=== PATIENT | male | born 1980 | race Caucasian/White ===

== ENCOUNTER 2022-05-20 23:57 | Inpatient (IN) | payer BC, SELFPAY ==
[2022-05-21] VITALS (7 sets, daily range): BP systolic 108–123; BP diastolic 65–76; PULSE 56–83; RESP 16–28; TEMP 36.6–36.8; O2SAT 95–97; BMI 30.3
--- NOTE | 2022-05-21 00:15 | ED.C_ITS ---
HPI - Psych General: Chief Complaint: Psychiatric Symptoms Stated Complaint: shortness of breath SI Time Seen by Provider: 05/20/22 23:58 Source: patient Mode of arrival: ambulatory Limitations: no limitations History of Present Illness: 41-year-old male presents here he states been feeling extremely anxious and depressed. He states he been having suicidal thoughts over the last 1 to 2 days with plans to kill himself he states he wants to get help. Patient here is quite anxious and agitated patient had to be verbally de-escalated because he became extremely aggressive with security was outside the room. Patient was able to calm down after a while. Associated symptoms: Reports depression and suicidal ideation Review of Systems Const: Denies: fever(s), chills, body aches or change in appetite Eyes: Denies: blurry vision or eye discomfort ENMT: Denies: throat pain or dental pain Card: Denies: chest pain Resp: Denies: dyspnea GI: Denies: abdominal pain, nausea, vomiting or diarrhea : Denies: dysuria Musc: Denies: neck pain or back pain Skin/Breast: Denies: rash Neuro: Denies: headache(s) Psych: Reports: anxiety, depression and suicidal ideation Bryan/Lymph: Denies: easy bruising All/Imm: Denies: urticaria PFSH ED PFSH: Medical History No pertinent past medical history Social History (Updated 05/21/22 @ 00:16 by Jyoti Holt MD) Smoking and tobacco status: current some day smoker Physical Exam Const: COMMON NORMALS: patient oriented x3 GENERAL APPEARANCE: anxious HENMT: COMMON NORMALS: normocephalic and atraumatic HEAD & SCALP: normocephalic and atraumatic Eye: COMMON NORMALS: Equal, round and reactive pupils present and EOMs intact bilaterally PUPIL: Yes Equal, round and reactive pupils present Neck/C-Spine: COMMON NORMALS: full ROM and supple Chest: COMMONS NORMALS: normal inspection of the chest and normal palpation of entire chest wall Resp: COMMON NORMALS: normal respiratory effort, No retractions, No use of accessory muscles and clear to auscultation bilaterally AUSCULTATION: clear t o auscultation bilaterally Cardio: COMMON NORMALS: regular rate, regular rhythm and No murmurs present (Cardio) RATE: regular rate RHYTHM: regular rhythm GI: COMMON NORMALS: Normal to inspection, nondistended, normoactive bowel sounds present, Soft to palpation, non-tender and no masses PALPATION: Yes Soft to palpation Extremity: COMMON NORMALS: normal to inspection and full ROM Neuro: COMMON NORMALS: patient oriented x3, moves all extremities and no focal motor deficits Psych: COMMON NORMALS: mental status grossly normal and Normal thought process present SPEECH: Yes Pressured speech present MOOD & AFFECT: Yes elevated mood and Yes anxious THOUGHT PROCESS: Normal thought process present THOUGHT CONTENT: Yes Suicidality present Skin: COMMON NORMALS: no rashes or lesions noted and no wounds GENERAL SKIN EXAM: no rashes or lesions noted Course Vital Signs: Vital signs: Vital Signs Temperature 98.0 F 05/21/22 00:11 Pulse Rate 83 05/21/22 00:11 Respiratory Rate 28 H 05/21/22 00:11 Pulse Oximetry 97 05/21/22 00:11 Oxygen Delivery Me thod 05/21/22 00:11 MDM - Psych Medical Decision Making Patient presents here with suicidal ideation spoke to psychiatrist will admit at this time patient is medically cleared. Lab Data : 05/21/22 00:26 05/21/22 00:26 Laboratory Results WBC 7.3 10^3/uL (4.0-10.0) 05/21/22 00:26 RBC 4.84 10^6/uL (4.1-5.3) 05/21/22 00:26 Hgb 14.3 g/dL (11.7-16.6) 05/21/22 00:26 Hct 42.8 % (42.0-52.0) 05/21/22 00:26 MCV 88.4 fl (80-94) 05/21/22 00:26 MCH 29.5 pg (28.0-34.0) 05/21/22 00:26 MCHC 33.4 g/dL (30.0-36.0) 05/21/22 00:26 RDW 11.9 % (12.1-15.1) L 05/21/22 00:26 Plt Count 292 10^3/cmm (130-400) 05/21/22 00:26 MPV 9.8 fL (7.4-10.4) 05/21/22 00:26 Neut % (Auto) 51.3 % 05/21/22 00:26 Lymph % (Auto) 32.9 % 05/21/22 00:26 [place] % (Auto) 5.7 % 05/21/22 00:26 Eos % (Auto) 8.1 % 05/21/22 00:26 Baso % (Auto) 1.6 % 05/21/22 00:26 Neut # (Auto) 3.75 10^3/uL (1.8-7.7) 05/21/22 00:26 Lymph # (Auto) 2.4 10^3/uL (0.8-4.8) 05/21/22 00:26 [place] # (Auto) 0.4 10^3/uL (0.2-0.9) 05/21/22 00:26 Eos # (Auto) 0.6 10^3/uL (0.0-0.8) 05/21/22 00: Baso # (Auto) 0.1 10^3/uL (0.0-0.1) 05/21/22 00:26 Nucleated RBC % (auto) 0 % 05/21/22 00: Nucleated RBCs # 0.0 /100WBC 05/21/22 00:26 Sodium 144 mmol/L (136-145) 05/21/22 00:26 Potassium 4.5 mmol/L (3.5-5.1) 05/21/22 00:26 Chloride 105 mmol/L (98-107) 05/21/22 00: Carbon Dioxide 28 mmol/L (22-29) 05/21/22 00:26 Anion Gap 15.5 (5-19) 05/21/22 00:26 BUN 9 mg/dL (6-20) 05/21/22 00:26 Creatinine 0.8 mg/dL (0.7-1.2) 05/21/22 00:26 GFR Calculation 107.1 mL/min (90-130) 05/21/22 00:26 Glucose 132 mg/dL (65-115) H 05/21/22 00:26 Calculated Osmolality 299 mOsm/kg (285-295) H 05/21/22 00:26 Calcium 9.1 mg/dL (8.5-10.5) 05/21/22 00:26 Total Bilirubin 0.2 mg/dL (0.15-1.2) 05/21/22 00:26 AST 30 U/L (0-40) 05/21/22 00:26 ALT 28 U/L (0-41) 05/21/22 00:26 Alkaline Phosphatase 111 IU/L (40-130) 05/21/22 00:26 Total Protein 6.8 g/dL (6.6-8.7) 05/21/22 00:26 Albumin 4.2 g/dL (3.5-5.2) 05/21/22 00:26 Globulin 2.6 g/dL (1.3-4.6) 05/21/22 00:26 Salicylates 0.4 mg/dL (3-10) L 05/21/22 00:26 Urine Opiates Screen Negative ng/mL (Negative) 05/21/22 00:35 Acetaminophen < 5.0 ug/mL (10-30) L 05/21/22 00:26 Ur Barbiturates Screen Negative ng/mL (Negative) 05/21/22 00:35 Ur Phencyclidine Scrn Negative ng/mL (Negative) 05/21/22 00:35 Ur Amphetamines Screen Positive ng/mL (Negative) H 05/21/22 00:35 U Benzodiazepines Scrn Negative ng/mL (Negative) 05/21/22 00:35 Urine Cocaine Screen Negative ng/mL (Negative) 05/21/22 00:35 U Marijuana (THC) Screen Negative ng/mL (Negative) 05/21/22 00:35 Ethyl Alcohol 107 mg/dL (0-10) H 05/21/22 00:26 Discharge Plan Discharge Patient Disposition: Admitted As Inpatient Clinical Impression: Suicidal ideation Coding Level of Care Code ED Spring Coiler Hand for Daya Fwd Exam Comprehensive
[2022-05-21] MEDS: haloperidol inj 5 mg/mL INJ 1 mL IM (00:20)
[2022-05-21] MEDS: midazolam 1 mg/mL INJ 2 mL 2 MG IM (00:20)
[2022-05-21 00:35] LABS: Basophils # 0.1 10^3/uL (0.0-0.1); Basophils % 1.6 %; Eosinophils # 0.6 10^3/uL (0.0-0.8); Eosinophils % 8.1 %; Hematocrit 42.8 % (42.0-52.0); Hemoglobin 14.3 g/dL (11.7-16.6); Lymphocytes # 2.4 10^3/uL (0.8-4.8); Lymphocytes % 32.9 %; Mean Corpuscular HGB Conc 33.4 g/dL (30.0-36.0); Mean Corpuscular Hemoglobin 29.5 pg (28.0-34.0); Mean Corpuscular Volume 88.4 fl (80-94); Mean Platelet Volume 9.8 fL (7.4-10.4); Monocytes # 0.4 10^3/uL (0.2-0.9); Monocytes % 5.7 %; Neutrophils # 3.75 10^3/uL (1.8-7.7); Neutrophils % 51.3 %; Nucleated Red Blood Cells % 0 %; Platelet Count 292 10^3/cmm (130-400); Red Blood Count 4.84 10^6/uL (4.1-5.3); Red Cell Distribution Width 11.9 % (12.1-15.1); White Blood Count 7.3 10^3/uL (4.0-10.0)
--- NOTE | 2022-05-21 00:37 | ECG_ITS ---
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 Measurements Intervals [place] Rate: 78 P: 24 MO: 126 QRS: 56 QRSD: 106 T: 56 QT: 388 QTc: 442 Interpretive Statements SINUS RHYTHM No previous ECG available for comparison Electronically Signed On 05-21-2022 21:28:01 CDT by Phuc Dan M.D. [email or web address]
[2022-05-21 00:56] LABS: Alanine Aminotransferase 28 U/L (0-41); Albumin Level 4.2 g/dL (3.5-5.2); Alcohol Level 107 mg/dL (0-10); Alkaline Phosphatase 111 IU/L (40-130); Anion Gap 15.5 (5-19); Aspartate Amino Transferase 30 U/L (0-40); Blood Urea Nitrogen 9 mg/dL (6-20); Calcium 9.1 mg/dL (8.5-10.5); Carbon Dioxide 28 mmol/L (22-29); Chloride 105 mmol/L (98-107); Creatinine Clr Calc Pharmacy 155.6778; Globulin 2.6 g/dL (1.3-4.6); Glomerular Filtration Rate 107.1 mL/min (90-130); Glucose 132 mg/dL (65-115); Osmolality Calculated 299 mOsm/kg (285-295); Potassium 4.5 mmol/L (3.5-5.1); Salicylate 0.4 mg/dL (3-10); Sodium 144 mmol/L (136-145); Total Bilirubin 0.2 mg/dL (0.15-1.2); Total Protein 6.8 g/dL (6.6-8.7)
[2022-05-21 00:58] LABS: Acetaminophen < 5.0 ug/mL (10-30)
--- NOTE | 2022-05-21 01:07 | PC.NURSE ---
0010: MD at bedside. Pt became very angry and aggressive, getting in MD's face. Security, this RN, charge entry, and flexboard operator at bedside. Pt began escalating, yelling for security to leave. Security was instructed by charge entry to step out of sight of pt. This calmed patient down. Pt then sat on bed and allowed this RN and charge entry to complete assessment, draw labs. Pt also requested med to help him calm down, as he hasn't been taking his meds. This was ordered by and given to pt, with pt consent.
--- NOTE | 2022-05-21 01:09 | PC.NURSE ---
Pt currently resting quietly. and father in room. EKG completed. Pt cooperative and calm.
[2022-05-21 01:23] LABS: Amphetamines Screen Urine Positive (Negative); Barbiturates Screen Urine Negative (Negative); Benzodiazepines Screen Urine Negative (Negative); Cocaine Screen Urine Negative (Negative); Opiate Screen Urine Negative (Negative); PCP Screen Urine Negative (Negative); THC Screen Urine Negative (Negative)
--- NOTE | 2022-05-21 07:34 | P.NPUHP_ITS ---
Providers/Chief Complaint Admitting Physician: Brandon Tate MD Chief Complaint: shortness of breath, SI HPI NPU History of Present Illness Tripp Tatum is a 41 year old male who presented to the emergency department with the following report: Chief Complaint: Psychiatric Symptoms Stated Complaint: shortness of breath SI Time Seen by Provider: 05/20/22 23:58 Source: patient Mode of arrival: ambulatory Limitations: no limitations History of Present Illness: 41-year-old male presents here he states been feeling extremely anxious and depressed. He states he been having suicidal thoughts over the last 1 to 2 days with plans to kill himself he states he wants to get help. Patient here is quite anxious and agitated patient had to be verbally de-escalated because he became extremely aggressive with security was outside the room. Patient was able to calm down after a while. Associated symptoms: Reports depression and suicidal ideation He was admitted to the neuropsychiatric unit for definitive treatment of those issues. He presents today reporting he is currently taking Seroquel 50 mg and an antidepressant but he could not recall the name. He reports that he presents secondary to anger and anxiety. He has never been psychiatrically hospitalized, is connected to [facility] but reports he does not go to his appointments and has been on a number of medications. He reports he chews 1 can a week, alcohol occasionally, denies marijuana and denies any other illicit drug use. He has never been to drug and alcohol treatment or drug and alcohol related charges. He reports he has always had anger issues since he was younger and would get in trouble with his parents and school. He endorses anxiety in worrying about everything and feeling as if people are watching him. He endorses paranoia at p oints. He endorses depression with feelings of helplessness, hopelessness, worthlessness, low mood, suicidal ideation, problems with sleep at points but denies self-injurious behaviors. We discussed how a nurse practitioner spoke about his had recounted that he has issues with keeping things steady and he agreed that this mortgage underwriter could reach out to his to obtain collateral information. He was not able to recall if things have gotten worse in any certain period of time recently. Psychiatric History: As above. Substance Abuse History: As above. Family History: He denies mental health or addiction issues on either side of the family and denies any suicide attempts or completions on either side of the family. Developmental History: He denies any issues with his or , learned to walk and talk and met his developmental milestones on time and denies any need for speech therapy, learning support, emotional support or special education classes. Psychosocial History: He reports his parents were together when he was born and remained together. He has a sister and brother who are products of the same union. His mother has one additional son and his father has no additional children. He described his childhood as rough but denies emotional, physical or sexual abuse. He denies CYS involvement. He denies any other trauamtic events or symptoms of post traumatic stress disorder. He graduated high school and did no additional training. He endorses being heterosexual with his longest relationship being 22 years. He has been once, has 2 sons, has never been in the and denies a worship belief system. 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 He currently lives in a house with his . Legal History: He has been to assisted 3 time and county more times, the longest time was 120 days. Medical History: Denied. Meds NPU Home Medications Medication Instructions Recorded Confirmed Last Taken Type escitalopram oxalate 20 mg tablet 20 mg PO DAILY 05/21/22 05/21/22 Unknown History (Lexapro) Allergies Allergy/AdvReac Type Severity Reaction Status Date / Time No Known Allergies Allergy Verified 05/21/22 00:16 [facility] NPU PFS: Medical History No pertinent past medical history Social History (Updated 05/21/22 @ 00:16 by Jyoti Holt MD) Smoking and tobacco status: current some day smoker Mental Status Exam MSE Comments: This is an overweight versus obese white male lying in bed in hospital scrubs with poor grooming and limited eye contact. No abnormal mov ements except for psychomotor retardation. Mostly cooperative with exam in mild distress. Speech was slightly decreased rate and volume. Mood described as fine, just tired, affect is subdued and restricted. Thought process, organized. Thought content: patient denies suicidal or homicidal ideation, no delusions reported or noted and denies any auditory or visual hallucinations. Attention and concentration are intact and memory appeared reliable but none were formally tested. He is alert and oriented three times. Insight and judgment are limited. Impulse control is limited. Vitals/I&O/Wt Last Vital Signs Temp 98.3 F 05/21/22 06:00 Pulse 66 05/21/22 06:00 Resp 17 05/21/22 06:00 BP 122/74 05/21/22 06:00 Pulse Ox 97 05/21/22 06:00 O2 Del Method 05/21/22 06:00 Weight last 48 hrs Weight 104.326 kg Data NPU : 05/21/22 00:26 05/21/22 00:26 A&P Assessment and plan (1) Suicidal ideation: Status: Acute (2) Paranoia: Status: Acute (3) Anxiety: Status: Acute (4) Depression: Status: Acute Plan This is a 41 year old white male with a history of anger, depression and anxiety who presents on a 96 hour hold secondary to concerns for worsening anger, depression and anxiety who endorses some success on his current medication and an openness to changes in those medications. 1. Continue current medications 2. We will obtain collateral information including outpatient records and from the patient?s . 3. Encourage individual, group and milieu therapy 4. Continue q-15 minute check for safety 5. Recommend sober living treatment at the highest level of care to which the patient is willing to commit. Involuntary Hold Information 96 Hour Hold: 96 Hour Involuntary Admission: Yes 96 Hour Hold Ending Date: 05/27/22 96 Hour Hold Ending Time: 01:35 Attestations NPU Medical Necessity Statement*: Inpatient hospitalization is medically necessary and the clinically appropriate intervention at this time. We will monitor medications and make changes as indicated. Patient will be in the hospital for o neisha two midnights. Likely length of stay is three to five days. Coding Level of Care Code Acute Communications Department Chair for Daya Burns Diagnoses Suicidal ideation R45.851 Paranoia F22 Anxiety F41.9 Depression F32.A
[2022-05-21] MEDS: folic acid 1 mg Tablet PO (08:33)
[2022-05-21] MEDS: escitalopram 10 mg Tablet 20 MG PO (08:33)
[2022-05-21] MEDS: thiamine 100 mg Tablet PO (08:33)
[2022-05-21] MEDS: multivitamin therapeutic Tablet 1 TAB PO (08:33)
--- NOTE | 2022-05-21 09:52 | PC.OT ---
OT EVAL HELD PER NURSING REQUEST. WILL ATTEMPT AT A LATER DATE.
--- NOTE | 2022-05-21 13:40 | PC.NURSE ---
, [place], called the unit, said pt takes home med Seroquel 50 mg at bedtime, was taking prior to admission last night.
[2022-05-21] MEDS: quetiapine 25 mg Tablet 50 MG PO (21:14)
[2022-05-22 06:00] VITALS: BP 119/73; PULSE 59; RESP 18; TEMP 36.5; O2SAT 96
[2022-05-22] MEDS: escitalopram 10 mg Tablet 20 MG PO (10:14)
[2022-05-22] MEDS: multivitamin therapeutic Tablet 1 TAB PO (10:14)
[2022-05-22] MEDS: thiamine 100 mg Tablet PO (10:15)
[2022-05-22] MEDS: folic acid 1 mg Tablet PO (10:16)
--- NOTE | 2022-05-22 12:27 | P.NPUPN_ITS ---
Subjective NPU Subjective: Patient presents today continuing to be somewhat ambiguous about his presentation and what his needs are. He was pushing for discharge even though there has been much we have accomplished and this may have been aided by some confusion about his discharge because there was another Tripp on the unit that was leaving. However after we spoke I had an opportunity to speak to his with his permission and she painted a very different picture. Picture of significant legal issues from poor choices. A history of recent dangerous and suicidal behaviors. Recent legal judgment that avoided up to 8 years in group home but left him with 5 years of probation/parole among other things. Mental Status Exam MSE Comments: This is an overweight versus obese white male lying in bed in hospital scrubs with poor grooming and limited eye contact. No abnormal movements except for psychomotor retardation. Mostly cooperative with exam in mild distress. Speech was slightly decreased rate and volume. Mood described as okay, just tired, affect is subdued and restricted. Thought process, organized. Thought content: patient denies suicidal or homicidal ideation, no delusions reported or noted and denies any auditory or visual hallucinations. Attention and concentration are intact and memory appeared reliable but none were formally tested. He is alert and oriented three times. Insight and judgment are limited. Impulse control is limited. Vitals/I&O/Wt Last Vital Signs Temp 97.7 F 05/22/22 06:00 Pulse 59 L 05/22/22 06:00 Resp 18 05/22/22 06:00 BP 119/73 05/22/22 06:00 Pulse Ox 96 05/22/22 06:00 O2 Del Method 05/21/22 14:00 Weight last 48 hrs Weight 104.326 kg Data NPU : 05/21/22 00:26 05/21/22 00:26 A&P Assessment and plan (1) Suicidal ideation: Status: Acute (2) Paranoia: Status: Acute (3) Anxiety: Status: Acute (4) Depression: Status: Acute Plan This is a 41 year old white male with a history of anger, depression and anxiety who presents on a 96 hour hold secondary to concerns for worsening anger, depression and anxiety who endorses some success on his current medication and an openness to changes in those medications. 1. Continue current medications 2. We will obtain collateral information including outpatient records and from the patient?s . We will speak to him again in the morning about this new and pertinent information. 3. Encourage individual, group and milieu therapy 4. Continue q-15 minute check for safety 5. Recommend sober living treatment at the highest level of care to which the patient is willing to commit. Involuntary Hold Information 96 Hour Hold: 96 Hour Involuntary Admission: Yes 96 Hour Hold Ending Date: 05/27/22 96 Hour Hold Ending Time: 01:35 Attestations NPU Medical Necessity Statement*: Inpatient hospitalization is medically necessary and the clinically appropriate intervention at this time. We will monitor medications and make changes as indicated. Likely length of stay is three to five days. Coding Level of Care Code Acute Studio Owner for g Fwd Diagnoses Suicidal ideation R45.851 Paranoia F22 Anxiety F41.9 Depression F32.A
[2022-05-22 14:00] VITALS: BP 123/82; PULSE 64; RESP 16; TEMP 36.7; O2SAT 96
[2022-05-22 20:14] VITALS: BP 113/66; PULSE 60; RESP 18; TEMP 36.8; O2SAT 97
[2022-05-22] MEDS: quetiapine 25 mg Tablet 50 MG PO (21:58)
[2022-05-22] MEDS: trazodone 50 mg Tablet PO (21:58)
[2022-05-22] MEDS: hyDROXYzine 25 mg Capsule 50 MG PO (21:59)
[2022-05-23 06:00] VITALS: BP 95/60; PULSE 66; RESP 18; TEMP 36.6; O2SAT 95
--- NOTE | 2022-05-23 07:53 | P.NPUPN_ITS ---
Subjective NPU Subjective: Patient presents today pushing for discharge. We had a fairly lengthy discussion about his focus on discharge and a focus on getting better so the discharge would be successful. We discussed his pattern of behavior recently but also over the past 22 years and how thinking that I have to balwinder nge without a plan for change is a plan for failure. He had no actionable ideas about what he would do differently that would prevent the mostly self- destructive behavior that has been the pattern of his life. He expressed security and that his would not leave but he could not articulate what he is doing or what he will change that would make it so that would be a smart decision on her part. His homework was to start thinking about actionable ideas to not have these group home/legal problems, poor employment outcomes, dangerous behaviors at home be continued behaviors. Mental Status Exam MSE Comments: This is an overweight versus obese white male lying in bed in hospital scrubs with poor grooming and limited eye contact. No abnormal movements except for psychomotor retardation. Mostly cooperative with exam in mild distress. Speech was slightly decreased rate and volume. Mood described as good I did not ready to go home, affect is less subdued and restricted. Thought process, organized. Thought content: patient denies suicidal or homicidal ideation, no delusions reported or noted and denies any auditory or visual hallucinations. Attention and concentration are intact and memory appeared reliable but none were formally tested. He is alert and oriented three times. Insight and judgment are poor. Impulse control is limited. Vitals/I&O/Wt Last Vital Signs Temp 98 F 05/23/22 06:00 Pulse 66 05/23/22 06:00 Resp 18 05/23/22 06:00 BP 95/60 05/23/22 06:00 Pulse Ox 95 05/23/22 06:00 O2 Del Method 05/22/22 14:00 Data NPU : 05/21/22 00:26 05/21/22 00:26 A&P Assessment and plan (1) Suicidal ideation: Status: Acute (2) Paranoia: Status: Acute (3) Anxiety: Status: Acute (4) Depression: Status: Acute Plan This is a 41 year old white male with a history of anger, depression and anxiety who presents on a 96 hour hold secondary to concerns for worsening anger, depression and anxiety who endorses some success on his current medication and an openness to changes in those medications. 1. Continue current medications 2. His 's information showed a picture of significant dysfunction and dangerous behavior. We will continue to discuss what he will do to make these not the standard in his life. 3. Encourage individual, group and milieu therapy 4. Continue q-15 minute check for safety 5. Recommend sober living treatment at the highest level of care to which the patient is willing to commit. Involuntary Hold Information 96 Hour Hold: 96 Hour Involuntary Admission: Yes 96 Hour Hold Ending Date: 05/27/22 96 Hour Hold Ending Time: 01:35 Attestations NPU Medical Necessity Statement*: Inpatient hospitalization is medically necessary and the clinically appropriate intervention at this time. We will monitor medications and make changes as indicated. Likely length of stay is 2-4 days. Coding Level of Care Code Acute Survey Chief for Daya Burns Diagnoses Suicidal ideation R45.851 Paranoia F22 Anxiety F41.9 Depression F32.A
[2022-05-23] MEDS: multivitamin therapeutic Tablet 1 TAB PO (08:56)
[2022-05-23] MEDS: folic acid 1 mg Tablet PO (08:56)
[2022-05-23] MEDS: escitalopram 10 mg Tablet 20 MG PO (08:56)
[2022-05-23] MEDS: thiamine 100 mg Tablet PO (08:56)
[2022-05-23 14:00] VITALS: BP 112/71; PULSE 60; RESP 18; TEMP 36.6; O2SAT 98
[2022-05-23] MEDS: nicotine 21 mg Patch 1 PATCH TRANSDERMA (15:17)
[2022-05-23 20:06] VITALS: BP 143/77; PULSE 73; RESP 16; O2SAT 97
[2022-05-23] MEDS: quetiapine 25 mg Tablet 50 MG PO (21:01)
--- NOTE | 2022-05-24 06:18 | P.NPUPN_ITS ---
Subjective NPU Subjective: Patient presents today having to face his continued impulsive behaviors at home that led to the admission. He is now actively speaking about his recovery and engaging in recovery oriented behavior. He still continues to likely be getting a list of things that he thinks will assist in him being discharged. We discussed working with the treatment team tomorrow to get him connected with treatment and work with his to create some kind of accountability with services moving forward. Mental Status Exam MSE Comments: This is an overweight versus obese white male lying in bed in hospital scrubs with poor grooming and limited eye contact. No abnormal movements except for psychomotor retardation. Mostly cooperative with exam in no acute distress. Speech was normal rate and volume. Mood described as good I am ready I think, affect is less subdued and restricted. Thought process, organized. Thought content: patient denies suicidal or homicidal ideation, no delusions reported or noted and denies any auditory or visual hallucinations. Attention and concentration are intact and memory appeared reliable but none were formally tested. He is alert and oriented three times. Insight and judgment are limited. Impulse control is limited. Vitals/I&O/Wt Last Vital Signs Temp 97.8 F 05/23/22 14:00 Pulse 73 05/23/22 20:06 Resp 16 05/23/22 20:06 BP 143/77 05/23/22 20:06 Pulse Ox 97 05/23/22 20:06 O2 Del Method 05/23/22 14:00 Data NPU : 05/21/22 00:26 05/21/22 00:26 A&P Assessment and plan (1) Suicidal ideation: Status: Acute (2) Paranoia: Status: Acute (3) Anxiety: Status: Acute (4) Depression: Status: Acute Plan This is a 41 year old white male with a history of anger, depression and anxiety who presents on a 96 hour hold secondary to concerns for worsening anger, depression and anxiety who endorses some success on his current medication and an openness to changes in those medications. 1. Continue current medications 2. His 's information showed a picture of significant dysfunction and dangerous behavior. We will continue to discuss what he will do to make these not the standard in his life. 3. Encourage individual, group and milieu therapy 4. Continue q-15 minute check for safety 5. Recommend sober living treatment at the highest level of care to which the patient is willing to commit. Involuntary Hold Information 96 Hour Hold: 96 Hour Involuntary Admission: Yes 96 Hour Hold Ending Date: 05/27/22 96 Hour Hold Ending Time: 01:35 Attestations NPU Medical Necessity Statement*: Inpatient hospitalization is medically necessary and the clinically appropriate intervention at this time. We will monitor medications and make changes as indicated. Likely length of stay is 1-3 days. Coding Level of Care Code Acute Perlite Grinder for [facility] Fwd Diagnoses Suicidal ideation R45.851 Paranoia F22 Anxiety F41.9 Depression F32.A
[2022-05-24] MEDS: folic acid 1 mg Tablet PO (08:03)
[2022-05-24] MEDS: escitalopram 10 mg Tablet 20 MG PO (08:03)
[2022-05-24] MEDS: multivitamin therapeutic Tablet 1 TAB PO (08:03)
[2022-05-24] MEDS: thiamine 100 mg Tablet PO (08:03)
[2022-05-24] MEDS: nicotine 2 mg Gum BUCCAL ×2 (11:17→13:11)
[2022-05-24 14:00] VITALS: BP 161/87; PULSE 63; RESP 18; TEMP 36.8; O2SAT 99
[2022-05-24] MEDS: nicotine 21 mg Patch 1 PATCH TRANSDERMA (19:21)
[2022-05-24] MEDS: trazodone 50 mg Tablet PO (20:11)
[2022-05-24] MEDS: quetiapine 25 mg Tablet 50 MG PO (20:11)
[2022-05-24 20:40] VITALS: BP 139/90; PULSE 75; RESP 18; TEMP 36.8; O2SAT 96
[2022-05-25 06:00] VITALS: BP 131/81; PULSE 74; RESP 18; TEMP 36.7; O2SAT 99
[2022-05-25] MEDS: folic acid 1 mg Tablet PO (08:09)
[2022-05-25] MEDS: escitalopram 10 mg Tablet 20 MG PO (08:10)
[2022-05-25] MEDS: multivitamin therapeutic Tablet 1 TAB PO (08:10)
[2022-05-25] MEDS: thiamine 100 mg Tablet PO (08:10)
[2022-05-25] MEDS: acetaminophen 325 mg Tablet 650 MG PO ×2 (09:09→17:23)
[2022-05-25] MEDS: hyDROXYzine 25 mg Capsule 50 MG PO (12:22)
[2022-05-25 13:16] VITALS: BP 141/72; PULSE 84; RESP 17; TEMP 36.6; O2SAT 95
--- NOTE | 2022-05-25 15:07 | P.NPUPN_ITS ---
Subjective NPU Subjective: He reports that his family has been supportive about his attending substance abuse treatment on inpatient level. going to rehab at [facility] but wishes to speak with his aoc operations intelligence officer to discuss what he had done. He reports that he wishes to consider recovery and reports that he understands that he needs to work on addiction recovery. He minimized methamphetamine abuse but reports routine alcohol use and reports having problems with managing temptations. He reports that his family has been supportive about his attending substance abuse treatment on inpatient level. Mental Status Exam MSE Comments: This is a tall friendly overweight versus obese white male lying in bed in hospital scrubs with adequate grooming and fair eye contact. No abnormal involuntary motor movements noted. He was superficially cooperative with exam in no acute distress. Speech was normal rate and volume. Mood described as okay. affect is slightly restricted. Thought process, linear logical and organized. Thought content: patient denies any suicidal or homicidal ideation, no delusions reported or noted and denies any auditory or visual hallucinations. Attention and concentration are intact and memory appeared reliable Vitals/I&O/Wt Last Vital Signs Temp 97.7 F 05/26/22 06:00 Pulse 65 05/26/22 06:00 Resp 18 05/26/22 06:00 BP 110/66 05/26/22 06:00 Pulse Ox 97 05/26/22 06:00 O2 Del Method 05/25/22 13:16 Data NPU : 05/21/22 00:26 05/21/22 00:26 A&P Assessment and plan (1) Suicidal ideation: Status: Acute (2) Paranoia: Status: Acute (3) Anxiety: Status: Acute (4) Depression: Status: Acute Plan This is a 41 year old white male with a history of anger, depression and anxiety who presents on a 96 hour hold secondary to concerns for worsening anger, depression and anxiety who endorses some success on his current medication and an openness to changes in those medications. 1. Continue current medications 2. Discuss in home concerns prior to discharge. 3. Encourage individual, group and milieu therapy 4. Continue q-15 minute check for safety 5. Recommend sober living treatment at the highest level of care to which the patient is willing to commit. Involuntary Hold Information 96 Hour Hold: 96 Hour Involuntary Admission: Yes 96 Hour Hold Ending Date: 05/27/22 96 Hour Hold Ending Time: 01:35 Attestations NPU Medical Necessity Statement*: Medical Necessity Statement*: Inpatient hospitalization is medically necessary and the clinically appropriate intervention at this time. We will monitor medications and make changes as indicated. Likely length of stay is 1-3 days. Coding Level of Care Code Established Pt Acute Microphone Operator for Yeisong Fwd Patient Type Established History Problem Focused Exam Problem Focused Medical Decision Making Straight Forward Diagnoses Suicidal ideation R45.851 Paranoia F22 Anxiety F41.9 Depression F32.A
[2022-05-25] MEDS: nicotine 2 mg Gum BUCCAL (16:14)
[2022-05-25] MEDS: OLANZapine 5 mg ODT PO (17:23)
--- NOTE | 2022-05-25 20:12 | W.PM.NPUPNS ---
Subjective NPU Subjective: Patient presents today reporting that he would like to consider going to rehab at [facility] but wishes to speak with his tactical intelligence officer to discuss what he had done. He reports that he wishes to consider recovery and reports that he understands that he needs to work on addiction recovery. He minimized methamphetamine abuse but reports routine alcohol use and reports having problems with managing temptations. He reports that his family has been supportive about his attending substance abuse treatment on inpatient level. Mental Status Exam MSE Comments: This is a tall friendly overweight versus obese white male lying in bed in hospital scrubs with adequate grooming and fair eye contact. No abnormal involuntary motor movements noted. He was superficially cooperative with exam in no acute distress. Speech was normal rate and volume. Mood described as okay. affect is slightly restricted. Thought process, linear logical and organized. Thought content: patient denies any suicidal or homicidal ideation, no delusions reported or noted and denies any auditory or visual hallucinations. Attention and concentration are intact and memory appeared reliable but none were formally tested. He is alert and oriented three times. Insight and judgment were poor. Impulse control is limited. Vitals/I&O/Wt Last Vital Signs Temp 98 F 05/25/22 13:16 Pulse 84 05/25/22 13:16 Resp 17 05/25/22 13:16 BP 141/72 05/25/22 13:16 Pulse Ox 95 05/25/22 13:16 O2 Del Method 05/25/22 13:16 Data NPU : 05/21/22 00:26 05/21/22 00:26 A&P Assessment and plan (1) Depression: Status: Acute (2) Anxiety: Status: Acute (3) Paranoia: Status: Acute (4) Polysubstance abuse: Status: Acute Involuntary Hold Information 96 Hour Hold: 96 Hour Involuntary Admission: Yes 96 Hour Hold Ending Date: 05/27/22 96 Hour Hold Ending Time: 01:35 Attestations NPU Medical Necessity Statement*: Inpatient hospitalization is medically necessary and the clinically appropriate intervention at this time. We will monitor medications and make changes as indicated. Likely length of stay is 1-3 days. Coding Level of Care Code Established Pt Acute Jar Filler for Daya Burns Patient Type Established History Problem Focused Exam Problem Focused Medical Decision Making Straight Forward Diagnoses Depression F32.A Anxiety F41.9 Paranoia F22 Polysubstance abuse F19.10
[2022-05-25 20:31] VITALS: BP 117/74; PULSE 88; RESP 20; TEMP 36.7; O2SAT 96
[2022-05-25] MEDS: quetiapine 25 mg Tablet 50 MG PO (20:38)
[2022-05-26 06:00] VITALS: BP 110/66; PULSE 65; RESP 18; TEMP 36.5; O2SAT 97
[2022-05-26] MEDS: thiamine 100 mg Tablet PO (09:34)
[2022-05-26] MEDS: multivitamin therapeutic Tablet 1 TAB PO (09:34)
[2022-05-26] MEDS: folic acid 1 mg Tablet PO (09:35)
[2022-05-26] MEDS: escitalopram 10 mg Tablet 20 MG PO (09:35)
[2022-05-26] MEDS: nicotine 21 mg Patch 1 PATCH TRANSDERMA (11:26)
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
[2022-05-26 14:13] VITALS: BP 110/66; PULSE 65; RESP 18; TEMP 36.5; O2SAT 97
== END 2022-05-26 14:20 | disposition home or self-care (01) | DRG 881 ==
LOC: ER 05-21 01:10 → NP 05-21 06:44
PROVIDERS: Admitting Provider Psychiatry & Neurology Psychiatry; Emergency Provider Emergency Medicine; Visit Provider Psychiatry & Neurology Psychiatry
DX: F32.A Depression, unspecified (principal); R45.851 Suicidal ideations; F41.9 Anxiety disorder, unspecified; F17.290 Nicotine dependence, other tobacco product, uncomplicated; F22 Delusional disorders; R45.4 Irritability and anger; F10.20 Alcohol dependence, uncomplicated; Y90.5 Blood alcohol level of 100-119 mg/100 ml
CPT/HCPCS: 80053; 80306; 80307; 85025; 93005; 96372; 97150; 97165; 99285; J1630; J2250

== ENCOUNTER 2022-06-07 21:51 | Emergency (ER) | payer BC, SELFPAY ==
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
[2022-06-07 22:34] VITALS: BP 145/84; PULSE 79; RESP 16; TEMP 37.2; O2SAT 97; BMI 27.7
[2022-06-07 22:40] VITALS: BP 145/84; PULSE 79; RESP 16; TEMP 37.2; O2SAT 97
[2022-06-07] MEDS: HYDROcodone-acetaminophen 5-325 mg Tablet 1 TAB PO (22:40)
--- NOTE | 2022-06-08 10:00 | DCPLANNER ---
Addendum entered by Christa Cisse 06/17/22 06:21: Patient had a follow up appointment scheduled with ortho - patient did attend appointment. Addendum entered by Christa Cisse 06/11/22 14:20: Patient has a follow up appointment scheduled for Wednesday, June 15, 2022 at 3:00 with Dedrick Martins at ortho. Clinic will call patient with appointment information. Original Note: special education case manager had message to schedule a follow up appointment for patient with ortho. special education case manager sent patients information to the front office staff at ortho. Patients information will be printed and reviewed. Clinic will call patient with appointment information.
== END 2022-06-07 22:41 | disposition home or self-care (01) ==
PROVIDERS: Emergency Provider Emergency Medicine
DX: S83.91XA Sprain of unspecified site of right knee, initial encounter (principal); F17.210 Nicotine dependence, cigarettes, uncomplicated; V86.56XA Driver of dirt bike or motor/cross bike injured in nontraffic accident, initial encounter
CPT/HCPCS: 29530; 73562; 99283; E0114

== ENCOUNTER 2022-08-03 11:01 | Outpatient (CLI) | payer BC, SELFPAY ==
--- NOTE | 2022-08-03 11:00 | MR_ITS ---
WS: [id number] MRI RIGHT KNEE NONCONTRAST TECHNIQUE: Axial PD, coronal PD fat sat, coronal PD, sagittal PD, and sagittal PD fat-sat images obta ined. CLINICAL INFORMATION: knee injury COMPARISON: Radiograph 8 2021 FINDINGS: Distal quadriceps and patella tendons are intact. Normal ACL and PCL. Blunting of the medial meniscus with tear involving the meniscal root. Lateral meniscus is better preserved. Mild chondromalacia pat tamika. Small amount of prepatellar soft tissue edema. Small suprapatellar effusion. High-grade tear in volving the medial collateral ligament with fluid and edema superficial and deep to the MCL fibers. N ormal lateral collateral ligament. Normal bone marrow signal in the femoral condyles and tibial plateau. Grade IV chondromalacia medial joint compartment with chondral fissuring and subchondral edema MR/MR knee RT wo con* [id number] IMPRESSION: 1. Normal ACL and PCL. 2. Blunting of the medial meniscus with acute appearing tear involving the men iscal root with fluid signal abnormality. Blunting of the medial meniscus. 3. Grade IV chondromalacia medial joint compartment with subchondral edema. 4. High-grade tear involving the medial collateral ligament with fluid and rosa maria ma along the superficial and deep soft tissues. 5. Small suprapatellar effusion. Outbridge grading: grade IV: full-thickness cartilage loss with underlying bone reactive changes
== END 2022-08-03 11:02 | disposition home or self-care (01) ==
PROVIDERS: Visit Provider Nurse Practitioner Family
DX: S89.91XA Unspecified injury of right lower leg, initial encounter (principal); X58.XXXA Exposure to other specified factors, initial encounter; M94.261 Chondromalacia, right knee; S83.411A Sprain of medial collateral ligament of right knee, initial encounter
CPT/HCPCS: 73721

== ENCOUNTER → 2023-04-15 12:37 | Outpatient (BNVA) | payer BC, SELFPAY | PROVIDERS: Visit Provider Podiatrist Foot & Ankle Surgery | DX: S93.402A Sprain of unspecified ligament of left ankle, initial encounter (principal); V86.55XA Driver of 3- or 4- wheeled all-terrain vehicle (ATV) injured in nontraffic accident, initial encounter | CPT/HCPCS: 73610; 73630 ==

== ENCOUNTER 2023-04-15 15:03 | Outpatient (CLI) | payer BC, SELFPAY | END 2023-04-15 15:04 | disposition home or self-care (01) | LOC: SPT 15:04 | PROVIDERS: Visit Provider Podiatrist Foot & Ankle Surgery | DX: Z46.89 Encounter for fitting and adjustment of other specified devices (principal); M25.571 Pain in right ankle and joints of right foot | CPT/HCPCS: 97760; L4361 ==

== ENCOUNTER 2024-06-16 06:00 | Outpatient (RCR) | payer OTHER, BC, SELFPAY | END 2024-06-24 18:00 | disposition home or self-care (01) | LOC: SPT 06:00 | PROVIDERS: Visit Provider Physical Medicine & Rehabilitation | DX: Z47.89 Encounter for other orthopedic aftercare (principal); M25.551 Pain in right hip; M25.561 Pain in right knee | CPT/HCPCS: 97110; 97161 ==

== ENCOUNTER 2024-06-25 06:00 | Outpatient (RCR) | payer OTHER, BC, SELFPAY | END 2024-07-24 23:59 | disposition home or self-care (01) | LOC: SPT 06:00 | PROVIDERS: Visit Provider Physical Medicine & Rehabilitation | DX: S06.9XAD Unspecified intracranial injury with loss of consciousness status unknown, subsequent encounter (principal); V89.2XXD Person injured in unspecified motor-vehicle accident, traffic, subsequent encounter | CPT/HCPCS: 97110 ==

== ENCOUNTER 2024-07-25 06:00 | Outpatient (RCR) | payer OTHER, BC, SELFPAY | END 2024-08-24 23:59 | disposition home or self-care (01) | LOC: SPT 06:00 | PROVIDERS: Visit Provider Physical Medicine & Rehabilitation | DX: S06.9XAD Unspecified intracranial injury with loss of consciousness status unknown, subsequent encounter (principal); V49.9XXD Car occupant (driver) (passenger) injured in unspecified traffic accident, subsequent encounter | CPT/HCPCS: 97110 ==

== ENCOUNTER 2024-08-25 06:00 | Outpatient (RCR) | payer OTHER, BC, SELFPAY | END 2024-09-23 23:59 | disposition home or self-care (01) | LOC: SPT 06:00 | PROVIDERS: Visit Provider Physical Medicine & Rehabilitation | DX: M25.571 Pain in right ankle and joints of right foot (principal) | CPT/HCPCS: 97110 ==

== ENCOUNTER 2024-09-24 06:00 | Outpatient (RCR) | payer OTHER, BC, SELFPAY | END 2024-10-24 23:59 | disposition home or self-care (01) | LOC: SPT 06:00 | PROVIDERS: Visit Provider Physical Medicine & Rehabilitation | DX: S06.9XAD Unspecified intracranial injury with loss of consciousness status unknown, subsequent encounter (principal); V49.9XXD Car occupant (driver) (passenger) injured in unspecified traffic accident, subsequent encounter | CPT/HCPCS: 97110 ==

== ENCOUNTER 2024-10-16 05:25 | Emergency (ER) | payer OTHER, BC, SELFPAY ==
[2024-10-16] VITALS (8 sets, daily range): BP systolic 136–177; BP diastolic 88–119; PULSE 67–85; RESP 18; TEMP 36.4; O2SAT 92–97; BMI 36.6
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
[2024-10-16] MEDS: HYDROmorphone 1 mg/mL INJ 1 mL IVP (06:10)
[2024-10-16] MEDS: ondansetron 2 mg/ML SDV 2 mL 4 MG IVP (06:10)
[2024-10-16 06:11] LABS: Basophils # 0.1 10^3/uL (0.0-0.1); Basophils % 0.7 %; Eosinophils # 0.8 10^3/uL (0.0-0.8); Eosinophils % 7.9 %; Hematocrit 45.8 % (37-53); Lymphocytes # 1.7 10^3/uL (0.8-4.8); Lymphocytes % 16.6 %; Mean Corpuscular HGB Conc 33.8 g/dL (30-55); Mean Corpuscular Hemoglobin 28.1 pg (27-33); Mean Corpuscular Volume 83.1 fl (82-101); Mean Platelet Volume 9.2 fL (7.4-10.4); Monocytes # 0.8 10^3/uL (0.2-0.9); Monocytes % 7.6 %; Neutrophils % 66.8 %; Nucleated Red Blood Cells % 0 %; Platelet Count 311 10^3/cmm (157-399); Red Blood Count 5.51 10^6/uL (3.85-5.65); Red Cell Distribution Width 12.7 % (12.1-15.1); White Blood Count 10.34 10^3/uL (3.29-11.43)
[2024-10-16 06:33] LABS: Alanine Aminotransferase 22 U/L (0-41); Albumin Level 4.3 g/dL (3.5-5.2); Alkaline Phosphatase 195 U/L (40-130); Anion Gap 15.8 (5-19); Aspartate Amino Transferase 22 U/L (0-40); Blood Urea Nitrogen 12 mg/dL (6-20); Carbon Dioxide 25 mmol/L (22-29); Chloride 102 mmol/L (98-107); Globulin 2.7 g/dL (1.3-4.6); Glomerular Filtration Rate 105.5 mL/min (90-130); Glucose 113 mg/dL (65-115); Lipase 11 U/L (13-60); Osmolality Calculated 289 mOsm/kg (285-295); Potassium 3.8 mmol/L (3.5-5.1); Sodium 139 mmol/L (136-145); Total Bilirubin 0.3 mg/dL (0.15-1.2)
[2024-10-16] MEDS: iohexol 350 mg/mL 500 mL Btl (per mL) IV (06:40)
[2024-10-16 06:41] LABS: Bilirubin Urine Negative (Negative); Blood Urine 3+ (Negative); Glucose Urine UA Negative (Normal); Ketones Urine Negative (Negative); Leukocyte Esterase Urine Negative (Negative); Nitrate Urine Negative (Negative); Protein Urine 1+ (Negative); Specific Gravity, Urine 1.027 (1.005-1.030); Urine Appearance Cloudy (CLEAR); Urine Color Yellow (Yellow)
[2024-10-16 06:46] LABS: Add Urine Microscopic? YES; Bacteria Urine None Seen /hpf; Hyaline Casts Urine 1.65 /lpf; RBC Urine >100 /hpf (0-2); Squamous Epithelial Cell Urine 0-5 /hpf (0-5); WBC Urine 0-5 /hpf (0-5)
[2024-10-16 06:47] LABS: Add Urine Culture? Yes
[2024-10-16 07:44] LABS: Lactic Sepsis W/Reflex 1.8 mmol/L (0.5-2.2)
== END 2024-10-16 11:20 | disposition home or self-care (01) ==
PROVIDERS: Emergency Medicine; Emergency Provider Family Medicine; PCP Physician Assistant Medical
DX: R31.9 Hematuria, unspecified (principal); Z72.0 Tobacco use; W19.XXXA Unspecified fall, initial encounter
CPT/HCPCS: 36415; 74177; 80053; 81001; 83605; 83690; 85025; 86140; 87086; 96374; 96375; 99285; J1171; J2405

== ENCOUNTER 2024-12-12 10:45 | Emergency (ER) | payer OTHER, BC, SELFPAY ==
[2024-12-12 10:50] VITALS: BP 174/81; PULSE 63; RESP 17; TEMP 36.4; O2SAT 97; BMI 35.6
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
--- NOTE | 2024-12-12 11:49 | W.ED.ABDPA2 ---
HPI - Abdominal Pain General: Chief Complaint: Abdominal Pain Stated Complaint: serve abd pain Time Seen by Provider: 12/12/24 11:37 Source: patient Mode of arrival: ambulatory Limitations: no limitations History of Present Illness: 44-year-old male who states that he has been having diffuse abdominal pain since this morning. He states the pains been sharp in nature and severe he rates a 9 out of 10 he is also been having vomiting he states he is had extensive abdominal issues with multiple surgeries in the past he denies any fevers denies any worse improved factors Related Data Home Medications ?Medication ?Instructions ?Recorded ?Confirmed allopurinol 100 mg tablet 100 mg PO DAILY 10/16/24 12/12/24 buspirone 5 mg tablet 5 mg PO BID 10/16/24 12/12/24 quetiapine 50 mg tablet 50 mg PO QPM 10/16/24 12/12/24 Previous Rx's ?Medication ?Instructions ?Recorded bupropion HCl 300 mg 24 hr tablet, 300 mg PO QAM #30 tabs 02/07/24 extended release tizanidine 4 mg tablet 4 mg PO Q6H PRN muscle spasticity 10/16/24 #20 tabs hydrocodone 5 mg-acetaminophen 325 1 tab PO Q6H PRN pain #14 tabs 12/12/24 mg tablet ondansetron 4 mg disintegrating 4 mg PO Q6H PRN nausea and 12/12/24 tablet vomiting #14 tabs Allergies Allergy/AdvReac Type Severity Reaction Status Date / Time No Known Allergies Allergy Verified 12/12/24 10:55 [facility] ED PFSH: Medical History Alcohol use disorder, moderate, dependence Methamphetamine use disorder, moderate, in early remission, dependence Psychiatric care No pertinent past medical history Social History Smoking and tobacco/nicotine status: current every day tobacco/nicotine user Physical Exam Const: COMMON NORMALS: no acute distress, patient oriented x3 and healthy appearing HENMT: COMMON NORMALS: normocephalic and atraumatic HEAD & SCALP: normocephalic and atraumatic Eye: COMMON NORMALS: Equal, round and reactive pupils present and EOMs intact bilaterally PUPIL: Yes Equal, round and reactive pupils present Neck/C-Spine: COMMON NORMALS: full ROM and supple Chest: COMMONS NORMALS: normal inspection of the chest Resp: COMMON NORMALS: normal respiratory effort Cardio: COMMON NORMALS: regular rate, regular rhythm and No murmurs present (Cardio) RATE: regular rate RHYTHM: regular rhythm GI: COMMON NORMALS: Normal to inspection, nondistended, normoactive bowel sounds present, Soft to palpation and no masses PALPATION: Yes Soft to palpation OTHER: diffuse tenderness Extremity: COMMON NORMALS: normal to inspection and full ROM Neuro: COMMON NORMALS: patient oriented x3, moves all extremities and no focal motor deficits Psych: COMMON NORMALS: mental status grossly normal, Normal thought process present and cooperative THOUGHT PROCESS: Normal thought process present Skin: COMMON NORMALS: no rashes or lesions noted and no wounds GENERAL SKIN EXAM: no rashes or lesions noted Course Vital Signs: Vital signs: Vital Signs Temperature 97.6 F 12/12/24 10:50 Pulse Rate 67 12/12/24 13:08 Respiratory Rate 17 12/12/24 10:50 Blood Pressure 146/87 12/12/24 13:08 Pulse Oximetry 96 12/12/24 13:08 Oxygen Delivery Me thod Room Air 12/12/24 10:50 MDM - Abdominal Pain Medical Decision Making Patient presents here with flank pain on abdominal pain CT does show a kidney stone his pain is much improved. No signs of infection blood works normal he stable for discharge we will get him follow-up with urology outpatient he is return if worsening. Medical Records I reviewed the patient's medical records. Lab Data I reviewed the patient's lab results. 12/12/24 11:47 12/12/24 11:47 Labs/Radiology: Radiology Impressions Abdomen/Pelvis CT 12/12/24 11:49 IMPRESSION: 1. Mild RIGHT renal and proximal ureteral obstruction secondary to a 5 mm mid RIGHT ureteral calcification. There is delayed excretion from the kidney and perinephric stranding. This ureteral calcification was also present on 10/16/2024 with slight caudad progression of the stone. 2. Appendix is not identified. There are postsurgical changes in the region of the cecum. 3. Hepatic and splenic granulomata. Laboratory Results WBC 12.07 10^3/uL (3.29-11.43) H 12/12/24 11:47 RBC 5.31 10^6/uL (3.85-5.65) 12/12/24 11:47 Hgb 15.50 g/dL (11.27-16.99) 12/12/24 11:47 Hct 45.6 % (37-53) 12/12/24 11:47 MCV 85.9 fl (82-101) 12/12/24 11:47 MCH 29.2 pg (27-33) 12/12/24 11:47 MCHC 34.0 g/dL (30-55) 12/12/24 11:47 RDW 12.3 % (12.1-15.1) 12/12/24 11:47 Plt Count 322 10^3/cmm (157-399) 12/12/24 11:47 MPV 9.3 fL (7.4-10.4) 12/12/24 11:47 Neut % (Auto) 77.3 % 12/12/24 11:47 Lymph % (Auto) 12.2 % 12/12/24 11:47 [place] % (Auto) 7.9 % 12/12/24 11:47 Eos % (Auto) 1.5 % 12/12/24 11:47 Baso % (Auto) 0.7 % 12/12/24 11:47 Neut # (Auto) 9.33 10^3/uL (1.8-7.7) H 12/12/24 11:47 Lymph # (Auto) 1.5 10^3/uL (0.8-4.8) 12/12/24 11:47 [place] # (Auto) 1.0 10^3/uL (0.2-0.9) H 12/12/24 11:47 Eos # (Auto) 0.2 10^3/uL (0.0-0.8) 12/12/24 11:47 Baso # (Auto) 0.1 10^3/uL (0.0-0.1) 12/12/24 11:47 Nucleated RBC % (auto) 0 % 12/12/24 11:47 Nucleated RBCs # 0.0 /100WBC 12/12/24 11:47 Sodium 137 mmol/L (136-145) 12/12/24 11:47 Potassium 3.8 mmol/L (3.5-5.1) 12/12/24 11:47 Chloride 99 mmol/L (98-107) 12/12/24 11:47 Carbon Dioxide 21 mmol/L (22-29) L 12/12/24 11:47 Anion Gap 20.8 (5-19) H 12/12/24 11:47 BUN 12 mg/dL (6-20) 12/12/24 11:47 Creatinine 1.0 mg/dL (0.7-1.2) 12/12/24 11:47 GFR Calculation 81.6 mL/min (90-130) L 12/12/24 11:47 Glucose 143 mg/dL (65-115) H 12/12/24 11:47 Calculated Osmolality 286 mOsm/kg (285-295) 12/12/24 11:47 Calcium 9.3 mg/dL (8.5-10.5) 12/12/24 11:47 Total Bilirubin 0.4 mg/dL (0.15-1.2) 12/12/24 11:47 AST 22 U/L (0-40) 12/12/24 11:47 ALT 22 U/L (0-41) 12/12/24 11:47 Alkaline Phosphatase 182 U/L (40-130) H 12/12/24 11:47 Total Protein 7.1 g/dL (6.6-8.7) 12/12/24 11:47 Albumin 4.3 g/dL (3.5-5.2) 12/12/24 11:47 Globulin 2.8 g/dL (1.3-4.6) 12/12/24 11:47 Lipase 7 U/L (13-60) L 12/12/24 11:47 Urine Color Yellow (Yellow) 12/12/24 14:18 Urine Appearance Clear (CLEAR) 12/12/24 14:18 Urine pH 8.5 (5-7) A 12/12/24 14:18 Ur Specific [place] 1.030 (1.005-1.030) 12/12/24 14:18 Urine Protein Negative (Negative) 12/12/24 14:18 Urine Glucose (UA) Negative (Normal) 12/12/24 14:18 Urine Ketones Trace (Negative) 12/12/24 14:18 Urine Blood Non-haemolysed trace (Negative) 12/12/24 14:18 Urine Nitrate Negative (Negative) 12/12/24 14:18 Urine Bilirubin Negative (Negative) 12/12/24 14:18 Urine Urobilinogen 0.2 mg/dL (Negative) 12/12/24 14:18 Ur Leukocyte Esterase Negative (Negative) 12/12/24 14:18 Amorphous Sediment Not Reportable 12/12/24 14:18 Ethyl Alcohol < 10 mg/dL (0-10) 12/12/24 11:47 All radiology interpretation(s) finalized by discharge Discharge Plan Discharge Patient Disposition: Home Clinical Impression: Kidney stone Condition: Stable Prescriptions: New hydrocodone-acetaminophen 5-325 mg tablet 1 tab PO Q6H PRN (Reason: pain) Qty: 14 0RF ondansetron 4 mg tablet,disintegrating 4 mg PO Q6H PRN (Reason: nausea and vomiting) Qty: 14 0RF No Action bupropion HCl 300 mg tablet extended release 24 hr 300 mg PO QAM Qty: 30 2RF Rx Instructions: Take one tablet by mouth every morning buspirone 5 mg tablet 5 mg PO BID allopurinol 100 mg tablet 100 mg PO DAILY quetiapine 50 mg tablet 50 mg PO QPM tizanidine 4 mg tablet 4 mg PO Q6H PRN (Reason: muscle spasticity) Qty: 20 0RF Rx Instructions: do not exceed 3 doses per 24 hrs Discharge Orders: Discharge ED (Routine); Ordered 12/12/24 Ordered By: Jyoti Holt Referrals: Theo Welsh PA [Primary Care Provider] - Discharge Diet: Advance as tolerated Discharge Activity: Resume usual activity Patient Instructions: Kidney Stones (ED), Opioid Safety, Pain Management Print Language: Maltese Coding Level of Care Code ED Junior Copywriter for Daya Burns
[2024-12-12 11:54] LABS: Basophils # 0.1 10^3/uL (0.0-0.1); Basophils % 0.7 %; Eosinophils # 0.2 10^3/uL (0.0-0.8); Eosinophils % 1.5 %; Hematocrit 45.6 % (37-53); Lymphocytes # 1.5 10^3/uL (0.8-4.8); Lymphocytes % 12.2 %; Mean Corpuscular Hemoglobin 29.2 pg (27-33); Mean Corpuscular Volume 85.9 fl (82-101); Mean Platelet Volume 9.3 fL (7.4-10.4); Monocytes % 7.9 %; Neutrophils # 9.33 10^3/uL (1.8-7.7); Neutrophils % 77.3 %; Nucleated Red Blood Cells % 0 %; Platelet Count 322 10^3/cmm (157-399); Red Blood Count 5.31 10^6/uL (3.85-5.65); Red Cell Distribution Width 12.3 % (12.1-15.1); White Blood Count 12.07 10^3/uL (3.29-11.43)
[2024-12-12 12:10] LABS: Alanine Aminotransferase 22 U/L (0-41); Albumin Level 4.3 g/dL (3.5-5.2); Alkaline Phosphatase 182 U/L (40-130); Anion Gap 20.8 (5-19); Blood Urea Nitrogen 12 mg/dL (6-20); Calcium 9.3 mg/dL (8.5-10.5); Carbon Dioxide 21 mmol/L (22-29); Chloride 99 mmol/L (98-107); Creatinine Clr Calc Pharmacy 130.5836; Globulin 2.8 g/dL (1.3-4.6); Glomerular Filtration Rate 81.6 mL/min (90-130); Glucose 143 mg/dL (65-115); Lipase 7 U/L (13-60); Osmolality Calculated 286 mOsm/kg (285-295); Potassium 3.8 mmol/L (3.5-5.1); Sodium 137 mmol/L (136-145); Total Bilirubin 0.4 mg/dL (0.15-1.2); Total Protein 7.1 g/dL (6.6-8.7)
[2024-12-12 12:12] LABS: Alcohol Level < 10 mg/dL (0-10)
[2024-12-12] MEDS: iohexol 350 mg/mL 500 mL Btl (per mL) IV (12:14)
[2024-12-12 12:20] LABS: Aspartate Amino Transferase 22 U/L (0-40)
[2024-12-12] MEDS: diphenhydrAMINE 50 mg/mL SDV 1mL IVP (12:29)
[2024-12-12] MEDS: metoclopramide 5 mg/mL SDV 2 mL 10 MG IVP (12:30)
[2024-12-12] MEDS: morphine 4 mg/mL SDV 1 mL IVP (12:31)
[2024-12-12 13:08] VITALS: BP 146/87; PULSE 67; O2SAT 96
[2024-12-12 14:40] LABS: Bilirubin Urine Negative (Negative); Blood Urine Non-haemolysed trace (Negative); Glucose Urine UA Negative (Normal); Ketones Urine Trace (Negative); Leukocyte Esterase Urine Negative (Negative); Nitrate Urine Negative (Negative); Protein Urine Negative (Negative); Urine Appearance Clear (CLEAR); Urine Color Yellow (Yellow); Urobilinogen Urine 0.2 mg/dL (Negative); pH Urine 8.5 (5-7)
[2024-12-12] MEDS: HYDROMORPHONE HCL 0.5 MG/0.5 ML INJ 1 MG IVP (14:40)
[2024-12-12 15:13] LABS: Add Urine Microscopic? YES; UA Slide Review UA Slide Review Perf
[2024-12-12 15:14] LABS: UA Manual Slide Review YES
[2024-12-12 15:21] VITALS: BP 181/105; PULSE 70; O2SAT 97
[2024-12-12 15:21] LABS: Add Urine Culture? No; Calcium Oxalate Crystals Urine 0-4 /hpf
== END 2024-12-12 15:21 | disposition home or self-care (01) ==
PROVIDERS: Emergency Provider Emergency Medicine; PCP Physician Assistant Medical
DX: N20.0 Calculus of kidney (principal); Z72.0 Tobacco use
CPT/HCPCS: 74177; 80053; 80307; 81001; 83690; 85025; 96374; 96375; 99285; J1171; J1200; J2270; J2765

== ENCOUNTER 2025-01-04 07:44 | Outpatient (CLI) | payer OTHER, BC, SELFPAY ==
--- NOTE | 2025-01-04 07:51 | CTR_ITS ---
PROCEDURE INFORMATION: Exam: CT Abdomen And Pelvis Without Contrast Exam date and time: 01/04/2025 8:12 AM Age: 44 years old Clinical indication: Condition or disease; Kidney or ureter condition; Calculus (stone) in kidney; Prior surgery; Surgery date: 6+ months; Surgery type: Liver, colon; Additional info: R ureteral stone TECHNIQUE: Imaging protocol: Computed tomography of the abdomen and pelvis without contrast. Radiation optimization: All CT scans at this facility use at least one of these dose optimization techniques: automated exposure control; mA and/or kV adjustment per patient size (includes targeted exams where dose is matched to clinical indication); or iterative reconstruction. COMPARISON: CT abdomen pelvis w con* [id number] 12/12/2024 12:09 PM RADIATION DOSE METRICS: Total DLP (mGy-cm): 1013.78 FINDINGS: Liver: Calcified granuloma in the liver. Gallbladder and biliary ducts: Normal. No calcified stones. No ductal dilation. Pancreas: Normal. No ductal dilation. Spleen: Calcified granuloma in the spleen. 14 cm mild splenomegaly. Adrenal glands: Normal. No mass. Kidneys and ureters: 4 mm mildly obstructing calculus at the proximal junctional 3rd of the right ureter. Mild proximal pelvocaliectasis. Stomach and bowel: Unremarkable. No obstruction. No mucosal thickening. Appendix: No evidence of appendicitis. Intraperitoneal space: Unremarkable. No free air. No significant fluid collection. Vasculature: Unremarkable. No abdominal aortic aneurysm. Lymph nodes: Unremarkable. No enlarged lymph nodes. Urinary bladder: Unremarkable as visualized. Reproductive: Unremarkable as visualized. Bones/joints: ORIF of a prior right pelvic fracture. Incompletely imaged ORIF of the right femur. Calcific density/bone fragments anterior to the pubic symphysis are probably related to prior trauma there as well. The appearance is unchanged. Bilateral L5 spondylolysis with mild spondylolisthesis. Soft tissues: Unremarkable. CT/CT kidney stone [id number] IMPRESSION: Mildly obstructing proximal right ureteral calculus slightly more caudal than was previously observed.
== END 2025-01-04 07:45 | disposition home or self-care (01) ==
LOC: RAD 07:45
PROVIDERS: PCP Physician Assistant Medical; Visit Provider Nurse Practitioner Family
DX: N20.1 Calculus of ureter (principal); Z98.890 Other specified postprocedural states; K75.3 Granulomatous hepatitis, not elsewhere classified; D73.89 Other diseases of spleen; R16.1 Splenomegaly, not elsewhere classified; R93.89 Abnormal findings on diagnostic imaging of other specified body structures; M43.06 Spondylolysis, lumbar region; R93.7 Abnormal findings on diagnostic imaging of other parts of musculoskeletal system
CPT/HCPCS: 74176

== ENCOUNTER 2025-02-23 16:40 | Outpatient (CLI) | payer OTHER, BC, SELFPAY ==
--- NOTE | 2025-02-23 16:56 | US_ITS ---
WS: [id number] RENAL ULTRASOUND HISTORY: RT RENAL STONE COMPARISON: CT 01/04/2025, CT 12/12/2024 TECHNIQUE: 2-D and color Doppler imaging of the kidney submitted. Right kidney: 11.8 cm x 5.7 cm x 5.6 cm. Cortex: 1.1 cm Normal echogenicity with no hydronephrosis or mass. Left kidney: 10.5 cm x 5.4 cm x 5.3 cm. Cortex: 1.2 cm Normal echogenicity with no hydronephrosis or mass. Vague area of decreased echogenicity in the renal cortex. There is no abnormality noted on recent CTs of the kidney. Aorta: Normal. Urinary Bladder: Normal distention. US/US renal BI* [id number] IMPRESSION: 1. No hydronephrosis or renal calcifications. 2. No solid mass.
== END 2025-02-23 16:41 | disposition home or self-care (01) ==
PROVIDERS: PCP Physician Assistant Medical; Visit Provider Urology
DX: N20.1 Calculus of ureter (principal)
CPT/HCPCS: 76770